=== PATIENT | male | born 1960 | race Caucasian/White ===

== ENCOUNTER 2019-02-25 08:47 | Emergency (ER) | payer OTHER ==
[2019-02-25] MEDS ORDERED: Aspirin 81 MG Tab.Chew PO ONE (08:52)
--- NOTE | 2019-02-25 08:54 | EDM.PDOC ---
ED HPI GENERAL MEDICAL PROBLEM - General Stated Complaint: CHEST PAIN Time Seen by Provider: 02/25/19 08:53 Source of Information: Reports: Patient - History of Present Illness INITIAL COMMENTS - FREE TEXT/NARRATIVE: HISTORY AND PHYSICAL: History of present illness: [Patient presents with chest pain 6 out of 10 radiating to the left shoulder associated with intermittent diaphoresis and nausea, pain began at 4 AM and awoke the patient from sleep No fever vomiting chills sweats no shortness of breath Review of systems: As per history of present illness and below otherwise all systems reviewed and negative. Past medical history: As per history of present illness and as reviewed below otherwise noncontributory. Surgical history: As per history of present illness and as reviewed below otherwise noncontributory. Social history: No reported history of drug or alcohol abuse. Family history: As per history of present illness and as reviewed below otherwise noncontributory. Physical exam: HEENT: Atraumatic, normocephalic, pupils reactive, negative for conjunctival pallor or scleral icterus, mucous membranes moist, throat clear, neck supple, nontender, trachea midline. Lungs: Clear to auscultation, breath sounds equal bilaterally, chest nontender. Heart: S1S2, regular, negative for clicks, rubs, or JVD. Abdomen: Soft, nondistended, nontender. Negative for masses or hepatosplenomegaly. Negative for costovertebral tenderness. Pelvis: Stable nontender. Genitourinary: Deferred. Rectal: Deferred. Extremities: Atraumatic, negative for cords or calf pain. Neurovascular unremarkable. Neuro: Awake, alert, oriented. Cranial nerves II through XII unremarkable. Cerebellum unremarkable. Motor and sensory unremarkable throughout. Exam nonfocal. Diagnostics: [CBC CMP troponin lipase EKG Chest 1 view ] Therapeutics: [ normal saline Nitroglycerin Aspirin 324 mg chewable Lovenox 100 mg subcutaneous Patient transferred to Dr. Jose Alfredo nice [facility] ] Impression: [A cute coronary syndrome Elevated troponin ] Definitive disposition and diagnosis as appropriate pending reevaluation and review of above. - Related Data Allergies Allergy/AdvReac Type Severity Reaction Status Date / Time No Known Allergies Allergy Verified 02/25/19 08:59 Home Meds: Home Meds Aspirin 162 mg PO DAILY 05/15/18 [History] Celecoxib [CeleBREX] 100 mg PO ASDIRECTED PRN 05/15/18 [History] Hydroxyurea [Hydrea] 500 mg PO BID 05/15/18 [History] Losartan/Hydrochlorothiazide [Losartan-HCTZ 100-12.5 MG] 1 tab PO DAILY [History] amLODIPine Besylate [Amlodipine Besylate] 10 mg PO DAILY 05/15/18 [History] Past Medical History Cardiovascular History: Reports: Hypertension, HI Musculoskeletal History: Reports: Arthritis Social & Family History - Family History Family Medical History: Noncontributory - Caffeine Use Caffeine Use: Reports: None ED ROS GENERAL - Review of Systems Review Of Systems: See Below ED EXAM, GENERAL - Physical Exam Exam: See Below Course - Vital Signs Last Recorded V/S: Last Vital Signs Temp 96.5 F 02/25/19 08:54 Pulse 69 02/25/19 08:54 Resp 18 02/25/19 08:54 BP 114/76 02/25/19 09:14 Pulse Ox 97 02/25/19 08:54 - Orders/Labs/Meds Orders: Active Orders 24 hr Category Date Time Status EKG Documentation Completion [RC] STAT Care 02/25/19 08:53 Active Oxygen Therapy Adult [Oxygen Therapy, ED] [RC] Care 02/25/19 09:24 Active ASDIRECTED UA RFX JILL AND CULT IF INDIC [URIN] Stat Lab 02/25/19 08:52 Ordered Sodium Chloride 0.9% [Normal Saline] 1,000 ml Med 02/25/19 09:00 Active IV STAT Medication Orders Sodium Chloride (Normal Saline) 1,000 mls @ 125 mls/hr IV STAT NISHI Last Admin: 02/25/19 09:00 Dose: 125 mls/hr Labs: Laboratory Tests 02/25/19 02/25/19 Range/Units 08:57 08:57 WBC 7.09 (4.0-11.0) K/uL RBC 3.91 L (4.50-5.90) M/uL Hgb 14.3 (13.0-17.0) g/dL Hct 40.3 (38.0-50.0) % MCV 103.1 H (80.0-98.0) fL MCH 36.6 H (27.0-32.0) pg MCHC 35.5 (31.0-37.0) g/dL RDW Std Deviation 55.6 (28.0-62.0) fl RDW Coeff of Niru 15 (11.0-15.0) % Plt Count 547 H (150-400) K/uL MPV 9.20 (7.40-12.00) fL Neut % (Auto) 81.1 H (48.0-80.0) % Lymph % (Auto) 12.0 L (16.0-40.0) % Graves % (Auto) 6.2 (0.0-15.0) % Eos % (Auto) 0.4 (0.0-7.0) % Baso % (Auto) 0.3 (0.0-1.5) % Neut # (Auto) 5.8 H (1.4-5.7) K/uL Lymph # (Auto) 0.9 (0.6-2.4) K/uL Graves # (Auto) 0.4 (0.0-0.8) K/uL Eos # (Auto) 0.0 (0.0-0.7) K/uL Baso # (Auto) 0.0 (0.0-0.1) K/uL Nucleated RBC % 0.0 /100WBC Nucleated RBCs # 0 K/uL Sodium 138 (136-148) mmol/L Potassium 3.4 L (3.5-5.1) mmol/L Chloride 102 (98-107) mmol/L Carbon Dioxide 23.9 (21.0-32.0) mmol/L BUN 16 (7.0-18.0) mg/dL Creatinine 1.1 (0.8-1.3) mg/dL Est Cr Clr Drug Dosing 75.58 mL/min Estimated GFR (MDRD) > 60.0 ml/min Glucose 143 H (74-106) mg/dL Calcium 8.6 (8.5-10.1) mg/dL Total Bilirubin 0.8 (0.2-1.0) mg/dL AST 21 (15-37) IU/L ALT 27 (14-63) IU/L Alkaline Phosphatase 131 H (46-116) U/L Troponin I 0.139 H* (0.000-0.056) ng/mL Total Protein 7.7 (6.4-8.2) g/dL Albumin 3.6 (3.4-5.0) g/dL Globulin 4.1 H (2.6-4.0) g/dL Albumin/Globulin Ratio 0.9 (0.9-1.6) Lipase 82 (73-393) U/L Meds: Medications Generic Name Dose Route Start Last Admin Trade Name Antonette PRN Reason Stop Dose Admin Sodium Chloride 1,000 mls @ 125 mls/hr 02/25/19 09:00 02/25/19 09:00 Normal Saline IV 125 mls/hr STAT NISHI Administration Discontinued Medications Generic Name Dose Route Start Last Admin Trade Name Antonette PRN Reason Stop Dose Admin Aspirin 324 mg 02/25/19 08:52 02/25/19 09:00 Aspirin PO 02/25/19 08:53 324 mg ONETIME ONE Administration Enoxaparin Sodium 100 mg 02/25/19 09:57 Lovenox SUBCUT 02/25/19 09:58 ONETIME ONE Nitroglycerin 0.4 mg 02/25/19 08:52 02/25/19 09:14 Nitrostat SL 0.4 mg Q5M PRN Administration Chest Pain Ondansetron HCl 8 mg 02/25/19 09:17 02/25/19 09:20 Zofran IVPUSH 02/25/19 09:18 8 mg ONETIME ONE Administration Ondansetron HCl Confirm 02/25/19 09:18 02/25/19 09:25 Zofran Administered 02/25/19 09:19 Not Given Dose 8 mg .ROUTE .STK-MED ONE Departure - Departure Time of Disposition: 10:04 Disposition: DC/Tfer to Acute Hospital 02 Condition: Fair Clinical Impression: Acute coronary syndrome - Discharge Information Referrals: PCP,Unknown [Primary Care Provider] - - My Orders Last 24 Hours: My Active Orders 02/25/19 08:52 UA RFX JILL AND CULT IF INDIC [URIN] Stat 02/25/19 08:53 EKG Documentation Completion [RC] STAT 02/25/19 09:00 Sodium Chloride 0.9% [Normal Saline] 1,000 ml IV STAT 02/25/19 09:24 Oxygen Therapy Adult [Oxygen Therapy, ED] [RC] ASDIRECTED - Assessment/Plan Last 24 Hours: My Active Orders 02/25/19 08:52 UA RFX JILL AND CULT IF INDIC [URIN] Stat 02/25/19 08:53 EKG Documentation Completion [RC] STAT 02/25/19 09:00 Sodium Chloride 0.9% [Normal Saline] 1,000 ml IV STAT 02/25/19 09:24 Oxygen Therapy Adult [Oxygen Therapy, ED] [RC] ASDIRECTED
[2019-02-25] MEDS: Nitroglycerin 0.4 MG Tab.SL SL PRN ×3 (09:00→09:14)
[2019-02-25] MEDS ORDERED: Sodium Chloride 0.9% 1,000 ML IV SCH (09:00)
[2019-02-25] MEDS ORDERED: Ondansetron 4 MG/2 ML SDV IVPUSH ONE (09:17)
[2019-02-25] MEDS ORDERED: Ondansetron 4 MG/2 ML SDV ONE (09:18)
--- NOTE | 2019-02-25 09:19 | CR ---
EXAMINATION: Portable chest radiograph. HISTORY: Shortness of breath. FINDINGS: The trachea is midline. The cardiomediastinal silhouette is within normal limits. No pulmonary infiltrates, effusions or pneumothorax. Osseous structures appear unremarkable. IMPRESSION: No acute cardiopulmonary process.
[2019-02-25 09:33] LABS: CHLORIDE,CL 102 mmol/L (98-107); SODIUM,NA 138 mmol/L (136-148)
[2019-02-25] MEDS ORDERED: Enoxaparin 100 MG/1 ML Syringe SUBCUT ONE (09:57)
== END 2019-02-25 10:45 ==
LOC: MW.ED 08:47
DX: I24.9 Acute ischemic heart disease, unspecified (principal); R79.89 Other specified abnormal findings of blood chemistry; I10 Essential (primary) hypertension; I25.2 Old myocardial infarction; Z79.82 Long term (current) use of aspirin; Z79.899 Other long term (current) drug therapy
CPT/HCPCS: 36415; 71045; 80053; 83690; 84484; 85025; 93005; 96361; 96374; 99285; A9270; J1650; J2405; J7040